=== PATIENT | female | born 1975 ===

== ENCOUNTER 2024-11-27 19:32 | Emergency (ER) | payer OTHER ==
[~2024-11-27] VITALS: Ht 165.1 cm; Wt 54.4 kg
[2024-11-27 19:32] VITALS: BP 128/100
[2024-11-27] MEDS ORDERED: ATOR10TA PO (19:40)
[2024-11-27 19:49] LABS: PLATELET COUNT (AUTO) 252 K/uL (179-408); RED BLOOD CELL COUNT(AUTO) 4.32 MIL/uL (3.63-4.92); RED CELL DISTRIBUTION WIDTH 14.1 % (12.3-17.7); WHITE BLOOD COUNT (AUTO) 6.6 K/uL (3.8-11.8)
[2024-11-27] MEDS ORDERED: ONDANSETRON 4 MG/2 ML VIAL ONE ×2 (19:49→21:16)
[2024-11-27] MEDS ORDERED: HYDROMORPHONE 1 MG/1 ML DISP.SYRIN ONE ×2 (19:50→21:17)
[2024-11-27 19:53] LABS: *BILIRUBIN,URIN NEGATIVE (NEGATIVE); *BLOOD, URINE NEGATIVE (NEGATIVE); *CLARITY,URINE CLEAR (CLEAR); *COLOR,URINE YELLOW (YELLOW); *KETONES,URINE NEGATIVE (NEGATIVE); *PROTEIN,URINE NEGATIVE (NEGATIVE); *UROBILINOGEN,URINE 0.2 E.U./dl (NORMAL); LEUKOCYTE ESTERASE ,URINE NEGATIVE (NEGATIVE); NITRITE, URINE POSITIVE (NEGATIVE); UGLUCOSE NEGATIVE (NEGATIVE)
[2024-11-27] MEDS: HYDROMORPHONE 1 MG/1 ML DISP.SYRIN IV ONE ×2 (19:55→21:25)
[2024-11-27] MEDS: ONDANSETRON 4 MG/2 ML VIAL IV ONE ×2 (19:55→21:25)
[2024-11-27 19:59] LABS: CREATININE 0.6 mg/dL (0.6-1.3); SODIUM SERUM 140.0 mmol/L (136-145); UREA NITROGEN, BLOOD 16.0 mg/dL (7-18)
[2024-11-27 20:00] LABS: SQUAMOUS EPITHELIAL CELL,UR FEW /HPF (NONE SEEN)
[2024-11-27 20:05] LABS: ASPARTATE AMINOTRANSFERASE 30.0 U/L (15-37); TOTAL PROTEIN, SERUM 8.2 g/dL (6.4-8.2)
[2024-11-27 20:10] LABS: PREGNANCY TEST SERUM QUAN 1.0 miul/L (0-6)
[2024-11-27] MEDS ORDERED: IOHEXOL 300MG/ML 100 ML INFUS..BTL ONE (20:18)
[2024-11-27] MEDS ORDERED: HYDR-3980 PO (21:46)
[2024-11-27] MEDS ORDERED: ONDA-243 PO (21:46)
[2024-11-27 22:38] VITALS: BP 117/76; O2SAT 99
== END 2024-11-27 22:25 | disposition left against medical advice (07) ==
LOC: ER 19:32
DX: R10.31 Right lower quadrant pain (principal); R30.0 Dysuria; E78.5 Hyperlipidemia, unspecified; Z78.0 Asymptomatic menopausal state; Z86.018 Personal history of other benign neoplasm; Z87.440 Personal history of urinary (tract) infections; Z90.721 Acquired absence of ovaries, unilateral; Z87.42 Personal history of other diseases of the female genital tract
CPT/HCPCS: 36415; 76856; 83690; 85025; 87086; 87210; A4606; A4663; J1171; J2405; Q9967